=== PATIENT | female | born 1985 | race Caucasian/White ===

== ENCOUNTER 2016-08-16 09:34 | Observation (INO) ==
[2016-08-16] MEDS ORDERED: Ringers Solution, Lactated 1,000 ML ONE ×2 (09:57→11:10)
[2016-08-16] MEDS ORDERED: Ringers Solution, Lactated 1,000 ML IVC SCH (10:15)
[2016-08-16 10:34] LABS: Basophils % 0.2 %; Eosinophils # 0.8 K/mcL (0.0-0.6); Eosinophils % 6.7 %; Hematocrit 31.9 % (35.3-44.9); Hemoglobin 10.5 g/dL (11.5-15.4); Immature Granulocytes % 0.5 % (0-4); Lymphocytes # 2.7 K/mcL (0.6-4.6); Lymphocytes % 24.1 %; Mean Corpuscular HGB Conc 32.9 g/dL (31.6-35.5); Mean Corpuscular Hemoglobin 30.1 pg (28.0-33.3); Mean Corpuscular Volume 91.4 fL (83.0-100.0); Mean Platelet Volume 9.5 fL (9.4-12.4); Monocytes # 0.6 K/mcL (0.0-1.3); Monocytes % 5.1 %; Neutrophils # 7.1 K/mcL (1.6-8.9); Platelet Count 311 K/mcL (140-400); Red Blood Count 3.49 M/mcL (3.82-4.97); Red Cell Distribution Width 13.2 % (11.5-14.5); Segmented Neutrophils % 63.4 %
--- NOTE | 2016-08-16 10:41 | Anesthesia Evaluation PreOp ---
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 Other Medical History: Other (depression, anxiety) Anesthesia History: No Prior Anesthetic Complications, Past Anesthesia (vaginal del, denies any family hx) Alcohol Use: none Drug use: none Medications and Allergies Klonopin 1 / PO DAILY 08/16/16 [History] Lexapro 1 / PO DAILY 08/16/16 [History] Allergies Penicillins Allergy (Verified 08/10/16 19:45) Anaphylaxis Anesthesia Results - Labs 08/16/16 10:26 Anesthesia Exam - HEENT Pupil (Motor): Pupils equal Mallampati: III Teeth: Normal Oral Opening: Less than or equal to 3 - [employer] INFORMATION CL[employer] LOC: Oriented [employer] INFORMATION CLERK Motor: Normal RUE, Normal LUE, Normal RLE, Normal LLE, Normal Face [employer] INFORMATION CLERK Sensory: Normal: RUE, LUE, RLE, LLE, Face - Cardiac Rhythm: Regular Murmur: None - Pulmonary Breath Sounds: bilateral Clear Respiratory Effort: Symmetrical Anesthesia Assess/Plan ASA Score: 2 Modified Yoli Scale for Level of Consciousness: Cooperative, oriented, and tranquil Anesthetic Plan: General, MAC Monitoring Plan: Standard Monitors Recovery Plan: PACU
[2016-08-16] MEDS ORDERED: *HR* Meperidine 50 MG/ML SYRINGE IVP PRN (10:42)
[2016-08-16] MEDS ORDERED: Ondansetron 4 MG/2 ML VIAL IVP ONE (10:42)
[2016-08-16] MEDS ORDERED: *HR* HYDROmorphone (PF) 1 MG/ML SYRINGE IVP PRN (10:42)
[2016-08-16] MEDS ORDERED: *HR* Promethazine 25 MG/ML VIAL IVP PRN (10:42)
[2016-08-16] MEDS ORDERED: *HR* FentaNYL (PF) 100 MCG/2 ML VIAL ONE (10:47)
[2016-08-16] MEDS ORDERED: *HR* Midazolam HCl 2 MG/2 ML VIAL ONE (10:47)
[2016-08-16] MEDS ORDERED: Lidocaine -MPF 2% 5 ML VIAL INFILT ONE (10:47)
[2016-08-16] MEDS ORDERED: *HR* Propofol 200 MG/20 ML VIAL IVP ONE ×2 (10:48→12:59)
[2016-08-16] MEDS ORDERED: Propofol 500 MG/50 ML INFUS..BTL ONE (10:50)
[2016-08-16] MEDS ORDERED: Ondansetron 4 MG/2 ML VIAL ONE (11:09)
[2016-08-16] MEDS ORDERED: Dexamethasone 4 MG/ML VIAL ONE (11:09)
[2016-08-16] MEDS ORDERED: Methylergonovine 0.2 MG/ML AMPUL IM ONE (11:12)
[2016-08-16] MEDS ORDERED: Doxycycline 100 MG CAPSULE PO ONE ×4 (11:44→11:47)
[2016-08-16] MEDS ORDERED: Ketorolac 30 MG/ML VIAL ONE (13:05)
--- NOTE | 2016-08-16 13:16 | OB/GYN Procedure Note ---
OB-[employer] T[employer]CH [employer] WORKER: Procedure - Diagnosis Date of procedure: 08/16/16 Pre-op diagnosis: anembryonic Post-op diagnosis: same - Procedure Procedure: suction D and C Child Advocate: Stephen Fournier Anesthesia Type: MAC Estimated blood loss (cc): 50 Fluids: crystalloid Procedure Complications: none Specimens collected: POC Disposition: same day Findings: per procedure Narrative: The patient was taken to the operating room where MAC anesthetia was administered. She was then positioned in the dorsal lithotomy position and prepped and draped in the normal sterile fashion. Once the anesthetic was found to be adequate, a weighted speculum was placed in the vagina. The anterior lip of cervix was grasped with the tenaculum and the cervix was progressively dilated. A size 7 curved suction curette was connected to the suction and was placed in the cervix and a suction curettage was performed. Multiple passes were made with the suction curettage. Next, a sharp curettage was performed obtaining a small amount of tissue and this was followed by another suction curettage and then a final sharp curettage was performed, which revealed a good uterine cry on all sides of the uterus. After the procedure, the vulsellum tenaculum was removed. The cervix was seemed to be hemostatic. The weighted speculum was removed. The patient was given 0.25 mg of Methergine IM approximately mcc through the procedure. The patient was taken from the operating room in stable condition after she was cleaned. She will be discharged today. She was given Methergine, Motrin, and doxycycline for her postoperative care. She will follow-up in the office.
[2016-08-16] MEDS ORDERED: 0.9 % Sodium Chloride 1,000 ML ONE (13:41)
[2016-08-17 12:04] VITALS: BP 93/60
== END 2016-08-16 15:10 | disposition home or self-care (01) ==
LOC: SAMDAY 09:34 → 1NENULAB 09:34
PROVIDERS: ADMIT Student in an Organized Health Care Education/Training Program; ATTEND Student in an Organized Health Care Education/Training Program

== ENCOUNTER 2020-07-02 11:34 | Observation (INO) ==
[2020-07-02 12:26] LABS: Hematocrit 35.7 % (35.3-44.9); Hemoglobin 11.2 g/dL (11.5-15.4); Mean Corpuscular HGB Conc 31.4 g/dL (31.6-35.5); Mean Corpuscular Hemoglobin 28.7 pg (28.0-33.3); Mean Corpuscular Volume 91.5 fL (83.0-100.0); Mean Platelet Volume 9.5 fL (9.4-12.4); Platelet Count 367 K/mcL (140-400); White Blood Count 24.6 K/mcL (4.3-11.1)
[2020-07-02 12:44] LABS: Alanine Aminotransferase 106 Units/L (7-52); Alkaline Phosphatase 141 Units/L (34-104); Aspartate Amino Transferase 29 Units/L (13-39); BUN/Creatinine Ratio 25 (6-26); Bilirubin,Direct 0.1 mg/dL (0.0-0.2); Bilirubin,Indirect 0.3 mg/dL (0.0-1.0); Bilirubin,Total 0.4 mg/dL (0.3-1.0); Blood Urea Nitrogen 17 mg/dL (6-20); Calcium 8.5 mg/dL (8.6-10.3); Carbon Dioxide 27 mEq/L (23-29); Chloride 100 mEq/L (98-107); Globulin 3.1 g/dL (2.4-3.5); Glucose 227 mg/dL (70-105); Osmolality,Calculated 289 (280-300); Potassium 3.6 mEq/L (3.5-5.1); Sodium 135 mEq/L (136-145); Total Protein 6.1 g/dL (6.4-8.9); eGFR For African Americans > 60 (> 60); eGFR For Non-African Americans > 60 (> 60)
[2020-07-02] MEDS ORDERED: Isovue-370 500 ML BOTTLE IVP ONE (14:34)
[2020-07-02] MEDS ORDERED: Perflutren Lipid Microsphere 1.3 ML in 0.9 % Sodium Chloride 8.7 ML IVP PRN (14:43)
[2020-07-02] MEDS ORDERED: Acetaminophen 325 MG TABLET PO PRN (14:53)
[2020-07-02] MEDS ORDERED: Ondansetron 4 MG/2 ML VIAL IVP PRN (14:53)
[2020-07-02] MEDS ORDERED: Naloxone 0.4 MG/ML INJ IVP PRN (14:53)
[2020-07-02] MEDS ORDERED: *HR* Dextrose 50 % in Water (Vial) 50 ML VIAL IVP PRN (15:12)
[2020-07-02] MEDS ORDERED: D5% in Water 1,000 ML IVC PRN (15:12)
[2020-07-02] MEDS ORDERED: Dextrose Gel 15 GM/37.5 ML TUBE PO PRN ×2 (15:12)
[2020-07-02] MEDS ORDERED: Calcium Gluconate 1gm/50mL 1 GM/50 ML BAG IVPB ONE (15:13)
[2020-07-02 15:59] LABS: Amphetamine Screen,Urine Positive ng/mL (Cutoff=1000); Barbiturate Screen,Urine Negative ng/mL (Cutoff=200); Benzodiazepines Screen,Urine Negative ng/mL (Cutoff=200); Cannabinoid Screen,Urine Negative ng/mL (Cutoff = 50); Cocaine Screen,Urine Negative ng/mL (Cutoff= 300); Opiate Screen,Urine Negative ng/mL (Cutoff=300); Phencyclidine Screen,Urine Negative ng/mL (Cutoff=25)
[2020-07-02] MEDS: Nicotine 14 MG PATCH.TD24 TD SCH (16:15)
[2020-07-02] MEDS ORDERED: Insulin LISPRO 300 UNITS/3 ML VIAL SUBQ SCH (18:00)
[2020-07-02] MEDS: Piperacillin/Tazobactam 3.375 GM in 0.9 % Sodium Chloride Mini Bag 100 ML IVPB SCH (18:12)
[2020-07-02] MEDS ORDERED: Ibuprofen 600 MG TABLET PO ONE (18:25)
[2020-07-02] MEDS ORDERED: *HR* LORazepam 2 MG/ML VIAL IVP ONE (20:33)
[2020-07-02] MEDS: 0.9 % Sodium Chloride 1,000 ML IVC SCH (20:45)
[2020-07-02 21:18] LABS: Influenza A PCR Negative (Negative); Influenza B PCR Negative (Negative); Resp. Syncytial Virus PCR Negative (Negative)
[2020-07-02 21:20] LABS: SARS-CoV-2 by PCR (In House) Negative (Negative)
[2020-07-03] MEDS: Piperacillin/Tazobactam 3.375 GM in 0.9 % Sodium Chloride Mini Bag 100 ML IVPB SCH ×2 (00:16→08:16)
[2020-07-03 00:36] LABS: Bilirubin,Urine Negative (Negative); Blood,Urine Negative (Negative); Clarity,Urine Clear (Clear); Color,Urine Yellow (Yellow); Glucose,Urine (UA) Normal (Normal); Ketones,Urine Negative (Negative); Leukocyte Esterase,Urine Negative (Negative); Nitrite,Urine Negative (Negative); PH,Urine 6.5 pH Units (5.0-8.0); Protein,Urine 70 mg/dL (Neg-Trace); Specific Gravity,Urine > 1.030 (1.010-1.025); Squamous Epithelial Cell,Urine Moderate per hpf (None-Few); Urobilinogen,Urine Normal (Normal); WBC,Urine 0-3 per hpf (0-3)
[2020-07-03 04:35] LABS: Hematocrit 31.1 % (35.3-44.9); Hemoglobin 9.9 g/dL (11.5-15.4); Mean Corpuscular HGB Conc 31.8 g/dL (31.6-35.5); Mean Corpuscular Hemoglobin 29.1 pg (28.0-33.3); Mean Corpuscular Volume 91.5 fL (83.0-100.0); Mean Platelet Volume 9.4 fL (9.4-12.4); Platelet Count 332 K/mcL (140-400); Red Cell Distribution Width 13.8 % (11.5-14.5); White Blood Count 22.3 K/mcL (4.3-11.1)
[2020-07-03] MEDS: Ibuprofen 400 MG TABLET PO PRN ×2 (04:48→15:16)
[2020-07-03 04:53] LABS: Estimated Average Glucose 117 mg/dl; Hemoglobin A1C 5.7 %
[2020-07-03 05:14] LABS: Hepatitis B Surface Antigen Nonreactive (Nonreactive)
[2020-07-03 05:18] LABS: Folate 8.9 ng/mL (3.0-16.0)
[2020-07-03 05:23] LABS: BUN/Creatinine Ratio 23 (6-26); Blood Urea Nitrogen 12 mg/dL (6-20); Calcium 7.6 mg/dL (8.6-10.3); Carbon Dioxide 25 mEq/L (23-29); Chloride 103 mEq/L (98-107); Ferritin 104 ng/mL (10-120); Glucose 102 mg/dL (70-105); Iron < 10 mcg/dL (50-170); Osmolality,Calculated 280 (280-300); Potassium 3.5 mEq/L (3.5-5.1); Sodium 135 mEq/L (136-145); Thyroid Stimulating Hormone 0.859 mcIU/mL (0.340-5.600); Transferrin 170 mg/dL (203-362); eGFR For African Americans > 60 (> 60); eGFR For Non-African Americans > 60 (> 60)
[2020-07-03 05:43] LABS: Hepatitis B Core IgM Nonreactive (Nonreactive)
[2020-07-03 05:45] LABS: Hepatitis A Antibody IgM Nonreactive (Nonreactive)
[2020-07-03] MEDS: 0.9 % Sodium Chloride 1,000 ML IVC SCH ×2 (05:54→12:05)
[2020-07-03 07:43] LABS: Hepatitis C Virus Antibody Reactive (Nonreactive)
[2020-07-03] MEDS: Nicotine 14 MG PATCH.TD24 TD SCH (08:17)
[2020-07-03] MEDS: Insulin LISPRO 300 UNITS/3 ML VIAL SUBQ SCH ×2 (08:21→11:52)
[2020-07-03 13:50] VITALS: BP 108/74
[2020-07-03] MEDS ORDERED: Ibuprofen 400 MG TABLET PO PRN (15:55)
[2020-07-03] MEDS ORDERED: Ibuprofen 200 MG TABLET PO ONE (15:57)
[2020-07-03] MEDS ORDERED: Insulin LISPRO 300 UNITS/3 ML VIAL SUBQ SCH (21:00)
[2020-07-08 10:53] LABS: Arsenic <10.0 ug/L (<=12.0); Cadmium <1.0 ug/L (<=5.0); Mercury <2.5 ug/L (<=10.0)
== END 2020-07-03 16:35 | disposition left against medical advice (07) ==
LOC: 3ANU 11:34 → EMEROOARM 11:34 → SUATTDRO 13:46 → 3ANU 14:06
PROVIDERS: ADMIT Internal Medicine; ATTEND Pharmacist